=== PATIENT | male | born 1965 | race Caucasian/White ===

== ENCOUNTER 2019-03-06 07:43 | Day surgery (SDC) | payer OTHER ==
[2019-03-04 16:00] VITALS: BMI 32.1
[~2019-03-06 07:43] MED LIST: LACTATED RINGERS 1,000 ML IV SCH; LIDOCAINE 1% 20 ML VIAL (10MG/ML) FOR IV START INTRADERMA PRN
[2019-03-06 08:30] VITALS: RESP 16; TEMP 97.7
[2019-03-06] MEDS ORDERED: PROPOFOL 10 MG/ML 20 ML VIAL IV ONE (08:42)
[2019-03-06] MEDS ORDERED: LIDOCAINE 1% INJ 10MG/ML (20 ML MDV) ONE (08:42)
--- NOTE | 2019-03-06 08:57 | P.PCN ---
Date of Procedure: 03/06/19 Procedure(s) Performed: BRIEF HISTORY: Patient is a 53-year-old pleasant, scheduled for an elective colonoscopy as a part of surveillance of long-standing history of ulcerative colitis diagnosed in 1995. His presently maintained on Lialda 4 tablets daily and remains in clinical remission. PROCEDURE PERFORMED: Colonoscopy with random biopsies. PREOPERATIVE DIAGNOSIS: Long-standing history of ulcerative colitis. IV sedation per Anesthesia. PROCEDURE: After informed consent was obtained, the patient, was brought into the endoscopy unit. IV sedation was administered by Anesthesia under continuous monitoring. Digital rectal examination was normal. Initially the Olympus CF-160 flexible video colonoscope was then inserted in the rectum, gradually advanced into the cecum without any difficulty. Careful examination was performed as the scope was gradually being withdrawn. Ileocecal valve and the appendiceal orifice were visualized and appeared normal. Prep was excellent. Mucosa of the cecum, ascending colon, transverse colon, descending colon, appeared normal. 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 Random biopsies were done from the rectum to cecum and every 10 cm into well. Retroflexion was performed in the rectum and no lesions were seen. The patient tolerated the procedure well. IMPRESSION: Mild erythema in the rectum and sigmoid colon up to 30 cm from the anal verge consistent with mildly active colitis. Rest of the colon appeared normal RECOMMENDATIONS: Findings of this examination were discussed with the patient as well as his family. He was advised to follow with the biopsy results.. He w ill continue with her current medications. If the biopsy does not show any evidence of dysplasia, he can have a repeat colonoscopy in 2 years
[2019-03-06 09:39] VITALS: BP 136/91; PULSE 76
== END 2019-03-06 10:01 | disposition home or self-care (01) ==
LOC: ORWHC2ENDO 07:43
PROVIDERS: ATTEND Internal Medicine Gastroenterology
DX: K51.90 Ulcerative colitis, unspecified, without complications (principal); I10 Essential (primary) hypertension; E78.5 Hyperlipidemia, unspecified; Z79.899 Other long term (current) drug therapy
CPT/HCPCS: 88305; 45380; J2001; J2704

== ENCOUNTER → 2019-12-09 | Outpatient (CLI) | payer OTHER ==
[2019-12-09 15:34] LABS: Basophils # (A) 0.1 k/uL (0-0.2); Basophils % (A) 1 %; Eosinophils # (A) 0.6 k/uL (0-0.7); Eosinophils % (A) 5 %; HCT 47.9 % (39.0-53.0); HGB 15.6 gm/dL (13.0-17.5); Lymphocytes % (A) 17 %; MCH 28.9 pg (25.0-35.0); MCHC 32.5 g/dL (31.0-37.0); MCV 88.8 fL (80.0-100.0); Mean Platelet Volume 6.8; Monocytes # (A) 0.5 k/uL (0-1.0); Monocytes % (A) 4 %; Neutrophils # (A) 8.3 k/uL (1.3-7.7); Neutrophils % (A) 71 %; Platelet Count 285 k/uL (150-450); RBC 5.39 m/uL (4.30-5.90); WBC 11.7 k/uL (3.8-10.6)
[2019-12-09 18:21] LABS: Erythrocyte Sedimentation Rate 15 mm/hr (0-15)
[2019-12-10 00:42] LABS: Hepatitis B Surface Antigen Non-Reactive (Non-Reactive)
== END | disposition home or self-care (01) ==
LOC: LABWHC1 14:59
PROVIDERS: ATTEND Internal Medicine Gastroenterology
DX: K51.90 Ulcerative colitis, unspecified, without complications (principal)
CPT/HCPCS: 36415; 85025; 85652; 86140; 86480; 86704; 87340

== ENCOUNTER → 2020-09-17 | Outpatient (CLI) | payer OTHER ==
--- NOTE | 2020-09-17 12:45 | XR ---
EXAMINATION TYPE: XR tibia fibula RT DATE OF EXAM: 09/17/2020 COMPARISON: NONE HISTORY: Pain TECHNIQUE: Two views are submitted. FINDINGS: The osseous structures are intact. The joint spaces are preserved. IMPRESSION: 1. No acute osseous abnormality.
--- NOTE | 2020-09-17 12:46 | XR ---
EXAMINATION TYPE: XR foot complete RT DATE OF EXAM: 09/17/2020 COMPARISON: NONE HISTORY: Pain TECHNIQUE: Three views are submitted. FINDINGS: The osseous structures are intact. There is no acute fracture or dislocation. Mild hypertrophic ch finn first MTP. Calcaneal spur noted.. IMPRESSION: 1. No acute fracture or dislocation. If symptoms persist, follow-up exam in 7 to 10 days could be ob tained.
== END | disposition home or self-care (01) ==
LOC: RADXRMAIN 12:06
PROVIDERS: ATTEND Internal Medicine
DX: S82.91XA Unspecified fracture of right lower leg, initial encounter for closed fracture (principal)

== ENCOUNTER → 2020-10-01 | Outpatient (CLI) | payer OTHER ==
--- NOTE | 2020-10-01 15:39 | US ---
EXAMINATION TYPE: US venous doppler duplex LE RT DATE OF EXAM: 10/01/2020 1:56 PM COMPARISON: NONE CLINICAL HISTORY: I82.40 acute Embolism thrombosis deep vein lower. Patient dropped a log on his leg about 1-2 months ago. Pain SIDE PERFORMED: Right TECHNIQUE: The lower extremity deep venous system is examined utilizing real time linear array sonog tricia with graded compression, doppler sonography and color-flow sonography. VESSELS IMAGED: External Iliac Vein (EIV) Common Femoral Vein Deep Femoral Vein Greater Saphenous Vein * Femoral Vein Popliteal Vein Small Saphenous Vein * Proximal Calf Veins (* superficial vessels) There is normal flow, compressibility, vascular waveforms. Right Leg: Negative for DVT IMPRESSION: No evident deep venous thrombosis at or central to the right knee, follow-up as indicated
== END | disposition home or self-care (01) ==
LOC: RADUSWWP 13:26
PROVIDERS: ATTEND Internal Medicine
DX: I82.401 Acute embolism and thrombosis of unspecified deep veins of right lower extremity (principal)

== ENCOUNTER → 2021-06-02 | Outpatient (CLI) | payer OTHER ==
[2021-06-02 18:23] LABS: Basophils # (A) 0.04 X 10*3/uL (0.00-0.10); Basophils % (A) 0.6 %; Eosinophils # (A) 0.24 X 10*3/uL (0.04-0.35); Eosinophils % (A) 3.5 %; HCT 47.8 % (39.6-50.0); HGB 15.6 g/dL (13.0-17.0); Lymphocytes % (A) 36.7 %; MCH 29.5 pg (27.0-32.0); MCHC 32.6 g/dL (32.0-37.0); MCV 90.5 fL (80.0-97.0); Monocytes # (A) 0.53 X 10*3/uL (0.20-1.00); Monocytes % (A) 7.8 %; Neutrophils # (A) 3.49 X 10*3/uL (1.80-7.70); Neutrophils % (A) 51.1 %; Platelet Count 211 X 10*3/uL (140-440); RBC 5.28 X 10*6/uL (4.40-5.60); RDW 12.6 % (11.5-14.5); WBC 6.82 X 10*3/uL (4.50-10.00)
[2021-06-02 22:13] LABS: African American GFR (CKD) 77.3 (60.0-200.0); Albumin 4.7 g/dL (3.80-4.90); Albumin/Globulin Ratio 1.96 (1.60-3.17); Anion Gap 8.7 mmol/L (4.00-12.00); BUN/Creat Ratio 12.5 Ratio (12.00-20.00); Carbon Dioxide 25.3 mmol/L (21.6-31.8); Globulin 2.4 g/dL (1.6-3.3); Non-African American GFR(CKD) 66.7 (60.0-200.0); Potassium 4.6 mmol/L (3.5-5.5); Total Bilirubin 0.6 mg/dL (0.3-1.2); Total Protein 7.1 g/dL (6.2-8.2)
== END | disposition home or self-care (01) ==
LOC: LABWHC1 10:54
PROVIDERS: ATTEND Internal Medicine Gastroenterology
DX: K51.90 Ulcerative colitis, unspecified, without complications (principal)
CPT/HCPCS: 36415; 80053; 85025

== ENCOUNTER → 2021-08-17 | Outpatient (CLI) | payer OTHER ==
[2021-08-17 18:20] LABS: Basophils # (A) 0.04 X 10*3/uL (0.00-0.10); Basophils % (A) 0.5 %; Eosinophils # (A) 0.25 X 10*3/uL (0.04-0.35); Eosinophils % (A) 2.8 %; HCT 47.4 % (39.6-50.0); HGB 16.2 g/dL (13.0-17.0); Lymphocytes # (A) 2.46 X 10*3/uL (0.90-5.00); Lymphocytes % (A) 27.9 %; MCH 30.2 pg (27.0-32.0); MCHC 34.2 g/dL (32.0-37.0); MCV 88.4 fL (80.0-97.0); Mean Platelet Volume 9.5 fL (9.5-12.2); Monocytes # (A) 0.67 X 10*3/uL (0.20-1.00); Monocytes % (A) 7.6 %; Neutrophils # (A) 5.39 X 10*3/uL (1.80-7.70); Platelet Count 207 X 10*3/uL (140-440); RBC 5.36 X 10*6/uL (4.40-5.60); RDW 12.3 % (11.5-14.5); WBC 8.83 X 10*3/uL (4.50-10.00)
[2021-08-17 21:33] LABS: African American GFR (CKD) 77.3 (60.0-200.0); Albumin 4.9 g/dL (3.80-4.90); Albumin/Globulin Ratio 1.81 (1.60-3.17); Anion Gap 9.8 mmol/L (4.00-12.00); Calcium 9.8 mg/dL (8.7-10.3); Carbon Dioxide 25.2 mmol/L (21.6-31.8); Globulin 2.7 g/dL (1.6-3.3); Non-African American GFR(CKD) 66.7 (60.0-200.0); Potassium 5.5 mmol/L (3.5-5.5); Total Bilirubin 0.7 mg/dL (0.2-1.2); Total Protein 7.6 g/dL (6.2-8.2)
== END | disposition home or self-care (01) ==
LOC: LABWHC1 11:09
PROVIDERS: ATTEND Internal Medicine Gastroenterology
DX: K51.90 Ulcerative colitis, unspecified, without complications (principal)
CPT/HCPCS: 36415; 80053; 85025

== ENCOUNTER 2021-09-17 11:05 | Day surgery (SDC) | payer OTHER ==
[2021-09-15 11:00] VITALS: BMI 30.7
[~2021-09-17 11:05] MED LIST changes: -LIDOCAINE 1% 20 ML VIAL (10MG/ML) FOR IV START INTRADERMA PRN
[2021-09-17 11:36] VITALS: TEMP 97.2
[2021-09-17] MEDS ORDERED: PROPOFOL 10 MG/ML 20 ML VIAL IV ONE (12:49)
[2021-09-17] MEDS ORDERED: LIDOCAINE 1% INJ 10MG/ML (20 ML MDV) ONE (12:49)
--- NOTE | 2021-09-17 13:07 | P.PCN ---
Date of Procedure: 09/17/21 Procedure(s) Performed: BRIEF HISTORY: Patient is a 56-year-old pleasant white male scheduled for an elective colonoscopy as a part of as a long-standing history of ulcerative colitis diagnosed in 1995. Patient has been having flareup for the last 2 years and has been steroid dependent. He was started on the Humira injection since July 2020. He continues to have 3-4 bowel movements daily. No blood or mucus in the stool. He scheduled for a surveillance colonoscopy today. PROCEDURE PERFORMED: Colonoscopy and biopsy. PREOPERATIVE DIAGNOSIS: Surveillance of long-standing history of ulcerative colitis. IV sedation per Anesthesia. PROCEDURE: After informed consent was obtained, the patient, was brought into the endoscopy unit. IV sedation was administered by Anesthesia under continuous monitoring. Digital rectal examination was normal. Initially the Olympus CF-160 flexible video colonoscope was then inserted in the rectum, gradually advanced into the cecum without any difficulty. Careful examination was performed as the scope was gradually being withdrawn. Ileocecal valve and the appendiceal orifice were visualized and appeared normal. Prep was excellent. Mucosa of the cecum, ascending colon, transverse colon, descending colon, sigmoid colon, and rectum appeared normal. Biopsies were done from cecum to rectum at every 10 cm into well. Retroflexion was performed in the rectum and no lesions were seen. The patient tolerated the procedure well. IMPRESSION: Normal-appearing colon from rectum to cecum no evidence of active colitis or colorectal neoplasia . RECOMMENDATIONS: Findings of this examination were discussed with the patient as well as his family. He was advised to continue with Humira injections every 2 weeks. Await biopsy results. If the biopsy does not show any evidence of dysplasia he can have a repeat surveillance colonoscopy every 2 years..
[2021-09-17 13:38] VITALS: BP 123/70; PULSE 77; RESP 20
== END 2021-09-17 13:36 | disposition home or self-care (01) ==
LOC: ORWHC2ENDO 11:05
PROVIDERS: ATTEND Internal Medicine Gastroenterology
DX: K51.90 Ulcerative colitis, unspecified, without complications (principal); K62.89 Other specified diseases of anus and rectum; I10 Essential (primary) hypertension; E78.5 Hyperlipidemia, unspecified; Z79.899 Other long term (current) drug therapy; K21.9 Gastro-esophageal reflux disease without esophagitis; Z79.52 Long term (current) use of systemic steroids
CPT/HCPCS: 88305; 45380; J2001; J2704

== ENCOUNTER → 2022-01-19 | Outpatient (CLI) | payer OTHER ==
--- NOTE | 2022-01-19 14:05 | XR ---
EXAMINATION TYPE: XR thoracic spine complete DATE OF EXAM: 01/19/2022 COMPARISON: NONE HISTORY: Pain TECHNIQUE: 3 views submitted FINDINGS: Multilevel hypertrophic and degenerative changes. At T12 there is a superior endplate compression fr acture of indeterminate age. Most likely chronic. Pedicles intact. Curvature of the spine noted. IMPRESSION: 1. Multilevel moderate to severe degenerative disc disease and hypertrophic spurring. Age-indetermina te compression fracture superior endplate T12. Most likely chronic correlate clinically.
--- NOTE | 2022-01-19 14:12 | XR ---
EXAM TYPE: LUMBAR SPINE X RAY SERIES COMPARISON: 08/27/2000 HISTORY: Pain TECHNIQUE: 4 views are submitted. FINDINGS: Hypertrophic spurring and degenerative disc disease is seen at all levels and most marked thoracolumb ar junction. There is an age-indeterminate superior endplate compression fractures L1. Facet arthropa thy particularly noted at levels L3-S1. IMPRESSION: 1. Age-indeterminate probable chronic superior endplate compression fracture L1 correlate with MRI. 2. There is multilevel degenerative disc disease and facet arthropathy. Foraminal encroachment suspec finesse L5-S1..
== END | disposition home or self-care (01) ==
LOC: RADXRMAIN 13:39
PROVIDERS: ATTEND Internal Medicine
DX: M51.34 Other intervertebral disc degeneration, thoracic region (principal); M25.78 Osteophyte, vertebrae; M51.37 Other intervertebral disc degeneration, lumbosacral region; M47.817 Spondylosis without myelopathy or radiculopathy, lumbosacral region
CPT/HCPCS: 72072; 72100

== ENCOUNTER 2022-05-26 10:36 | Emergency (ER) | payer OTHER ==
[2022-05-26 10:42] VITALS: RESP 18
[2022-05-26 12:21] LABS: Basophils # (A) 0.1 k/uL (0-0.2); Basophils % (A) 1 %; Eosinophils # (A) 0.2 k/uL (0-0.7); Eosinophils % (A) 2 %; HCT 47.2 % (39.0-53.0); Lymphocytes # (A) 2.1 k/uL (1.0-4.8); Lymphocytes % (A) 27 %; MCHC 33.9 g/dL (31.0-37.0); MCV 91.5 fL (80.0-100.0); Monocytes # (A) 0.4 k/uL (0-1.0); Monocytes % (A) 4 %; Neutrophils # (A) 5.2 k/uL (1.3-7.7); Neutrophils % (A) 64 %; Platelet Count 203 k/uL (150-450); RBC 5.16 m/uL (4.30-5.90); RDW 12.5 % (11.5-15.5)
[2022-05-26 12:28] LABS: Albumin 4.8 g/dL (3.5-5.0); Calcium 9.6 mg/dL (8.4-10.2); Magnesium 1.9 mg/dL (1.6-2.3); Potassium 4.8 mmol/L (3.5-5.1); Total Bilirubin 0.5 mg/dL (0.2-1.3); Total Protein 7.8 g/dL (6.3-8.2)
[2022-05-26 12:37] LABS: Partial Thromboplastin Time 25.2 sec (22.0-30.0); Prothrombin Time 10.6 sec (9.0-12.0)
--- NOTE | 2022-05-26 14:12 | XR ---
EXAMINATION TYPE: XR chest 2V DATE OF EXAM: 05/26/2022 COMPARISON: NONE TECHNIQUE: PA and lateral views submitted. HISTORY: Syncope FINDINGS: Heart size normal. Hypertrophic and degenerative changes spine. Chronic appearing superior endplate f orming thoracolumbar. Very minimal blunting of the right costophrenic angle. There is subsegmental ch anges in the left perihilar region. Biapical pleural thickening. IMPRESSION: 1. Left perihilar atelectasis or early infiltrate correlate clinically.
--- NOTE | 2022-05-26 14:17 | ED ---
General Adult HPI - General Chief complaint: Syncope Stated complaint: syncope Time Seen by Provider: 05/26/22 11:18 Source: patient, RN notes reviewed Mode of arrival: ambulatory Limitations: no limitations - History of Present Illness Initial comments: 57-year-old male with a history of ulcerative colitis and anxiety also hypertension who apparently received bad news yesterday also financial issues when he states he started getting anxious and hyperventilated he ultimately passed out for he believes a couple minutes. He had no injury. He denies any fevers chills nausea vomiting sweats no focal weakness. He did contact his doctor referred him here for evaluation. He at this time feels well he states this is happened before. No other complaints or modifying factors at this time - Related Data Home Medications Medication Instructions Recorded Confirmed Lovastatin [Mevacor] 40 mg PO HS 11/16/16 09/17/21 Mesalamine [Lialda] 4.8 gm PO DAILY 11/16/16 09/17/21 Mirtazapine [Remeron] 45 mg PO HS 11/16/16 09/17/21 Omeprazole 20 mg PO DAILY 11/16/16 09/17/21 Adalimumab [Humira Pen 40 mg SQ Q14D 09/15/21 09/17/21 Crohn's-Uc-Hs] busPIRone HCL [Buspar] 7.5 mg PO BID 09/15/21 09/17/21 lisinopriL [Zestril] 5 mg PO DAILY 09/15/21 09/17/21 Allergies Allergy/AdvReac Type Severity Reaction Status Date / Time No Known Allergies Allergy Verified 05/26/22 10:42 Review of Systems ROS Statement: Those systems with pertinent positive or pertinent negative responses have been documented in the HPI. ROS Other: All systems not noted in ROS Statement are negative. Past Medical History Past Medical History: Hyperlipidemia, Hypertension Additional Past Medical History / Comment(s): ulcerative Colitis History of Any Multi-Drug Resistant Organisms: None Reported Past Surgical History: No Surgical Hx Reported Additional Past Surgical History / Comment(s): Colonoscopies Past Anesthesia/Blood Transfusion Reactions: No Reported Reaction Past Psychological History: Anxiety Smoking Status: Never smoker Past Alcohol Use History: Rare - Past Family History Mother Family Medical History: No Reported History General Exam - General Exam Comments Initial Comments: This is a well-developed well-nourished awake alert oriented times 4 male Limitations: no limitations General appearance: alert, in no apparent distress Head exam: Present: atraumatic, normocephalic, normal inspection Eye exam: Present: normal appearance, PERRL, EOMI. Absent: scleral icterus, conjunctival injection, periorbital swelling ENT exam: Present: normal exam, mucous membranes moist Neck exam: Present: normal inspection, full ROM, other (No stridor JVD or bruits). Absent: tenderness, meningismus, lymphadenopathy Respiratory exam: Present: normal lung sounds bilaterally. Absent: respiratory distress, wheezes, rales, rhonchi, stridor Cardiovascular Exam: Present: regular rate, normal rhythm, normal heart sounds. Absent: systolic murmur, diastolic murmur, rubs, gallop, clicks GI/Abdominal exam: Present: soft, normal bowel sounds. Absent: distended, tenderness, guarding, rebound, rigid, bruit, pulsatile mass Extremities exam: Present: normal inspection, full ROM, normal capillary refill. Absent: tenderness, pedal edema, joint swelling, calf tenderness Back exam: Present: normal inspection Neurological exam: Present: alert, oriented X3, CN II-XII intact Psychiatric exam: Present: normal affect, normal mood Skin exam: Present: warm, dry, intact, normal color. Absent: rash Course Vital Signs 05/26/22 10:38 Temperature 97.9 F Pulse Rate 88 Respiratory 18 Rate Blood Pressure 159/94 O2 Sat by Pulse 97 Oximetry EKG Findings - EKG Results: EKG: interpreted by ERMD, sinus rhythm (Sinus rhythm rate of 84 NJ interval 134 QRS duration 99 QT since QTC 347/388 Q waves seen in leads 2 and aVF nonspecific) Medical Decision Making - Medical Decision Making Patient presented with complaints of a syncopal episode yesterday after getting bad news about some financial situation he has a history of anxiety and thinks he hyperventilated and passed out for a couple minutes. He presents today awake alert oriented 4 no distress no clinical findings. Patient be discharged to follow-up with his doctor we did discuss the possible hypodensity in the right thyroid lobe he will get this addressed outpatient. The presentation consistent with vasovagal episode - Lab Data Result diagrams: 05/26/22 11:37 05/26/22 11:37 Lab Results 05/26/22 05/26/22 05/26/22 Range/Units 11:37 11:37 11:37 WBC 8.0 (3.8-10.6) k/uL RBC 5.16 (4.30-5.90) m/uL Hgb 16.0 (13.0-17.5) gm/dL Hct 47.2 (39.0-53.0) % MCV 91.5 (80.0-100.0) fL MCH 31.0 (25.0-35.0) pg MCHC 33.9 (31.0-37.0) g/dL RDW 12.5 (11.5-15.5) % Plt Count 203 (150-450) k/uL MPV 7.0 Neutrophils % 64 % Lymphocytes % 27 % Monocytes % 4 % Eosinophils % 2 % Basophils % 1 % Neutrophils # 5.2 (1.3-7.7) k/uL Lymphocytes # 2.1 (1.0-4.8) k/uL Monocytes # 0.4 (0-1.0) k/uL Eosinophils # 0.2 (0-0.7) k/uL Basophils # 0.1 (0-0.2) k/uL PT 10.6 (9.0-12.0) sec INR 1.0 (<1.2) APTT 25.2 (22.0-30.0) sec D-Dimer 0.73 H (<0.60) mg/L FEU Sodium 140 (137-145) mmol/L Potassium 4.8 (3.5-5.1) mmol/L Chloride 107 (98-107) mmol/L Carbon Dioxide 26 (22-30) mmol/L Anion Gap 7 mmol/L BUN 12 (9-20) mg/dL Creatinine 1.21 (0.66-1.25) mg/dL Est GFR (CKD-EPI)AfAm 76 (>60 ml/min/1.73 sqM) Est GFR (CKD-EPI)NonAf 66 (>60 ml/min/1.73 sqM) Glucose 105 H (74-99) mg/dL Calcium 9.6 (8.4-10.2) mg/dL Magnesium 1.9 (1.6-2.3) mg/dL Total Bilirubin 0.5 (0.2-1.3) mg/dL AST 30 (17-59) U/L ALT 33 (4-49) U/L Alkaline Phosphatase 67 (38-126) U/L Troponin I (0.000-0.034) ng/mL Total Protein 7.8 (6.3-8.2) g/dL Albumin 4.8 (3.5-5.0) g/dL 05/26/22 Range/Units 11:37 WBC (3.8-10.6) k/uL RBC (4.30-5.90) m/uL Hgb (13.0-17.5) gm/dL Hct (39.0-53.0) % MCV (80.0-100.0) fL MCH (25.0-35.0) pg MCHC (31.0-37.0) g/dL RDW (11.5-15.5) % Plt Count (150-450) k/uL MPV Neutrophils % % Lymphocytes % % Monocytes % % Eosinophils % % Basophils % % Neutrophils # (1.3-7.7) k/uL Lymphocytes # (1.0-4.8) k/uL Monocytes # (0-1.0) k/uL Eosinophils # (0-0.7) k/uL Basophils # (0-0.2) k/uL PT (9.0-12.0) sec INR (<1.2) APTT (22.0-30.0) sec D-Dimer (<0.60) mg/L FEU Sodium (137-145) mmol/L Potassium (3.5-5.1) mmol/L Chloride (98-107) mmol/L Carbon Dioxide (22-30) mmol/L Anion Gap mmol/L BUN (9-20) mg/dL Creatinine (0.66-1.25) mg/dL Est GFR (CKD-EPI)AfAm (>60 ml/min/1.73 sqM) Est GFR (CKD-EPI)NonAf (>60 ml/min/1.73 sqM) Glucose (74-99) mg/dL Calcium (8.4-10.2) mg/dL Magnesium (1.6-2.3) mg/dL Total Bilirubin (0.2-1.3) mg/dL AST (17-59) U/L ALT (4-49) U/L Alkaline Phosphatase (38-126) U/L Troponin I <0.012 (0.000-0.034) ng/mL Total Protein (6.3-8.2) g/dL Albumin (3.5-5.0) g/dL - Radiology Data Radiology results: report reviewed (Imaging reviewed no acute findings seen. No evidence of PE. The findings please see the complete report I did discuss the thyroid findings with the patient.), image reviewed Disposition Clinical Impression: Vasovagal syncope Disposition: HOME SELF-CARE Condition: Good Instructions (If sedation given, give patient instructions): Syncope (DC) Is patient prescribed a controlled substance at d/c from ED?: No Referrals: Deana Arechiga MD [Primary Care Provider] - 1-2 days Decision Date: 05/26/22 Decision Time: 15:23
--- NOTE | 2022-05-26 14:34 | CT ---
EXAMINATION TYPE: CT angio chest DATE OF EXAM: 05/26/2022 COMPARISON: No previous CT scan is available for comparison HISTORY: Syncope CT DLP: 599.4 mGy.cm. Automated Exposure Control for Dose Reduction was Utilized. TECHNIQUE AND CONTRAST: CTA scan of the thorax is performed with IV Contrast, patient injected with 100 mL of Isovue 370, pul monary embolism protocol. MIP Images are created on an independent workstation and reviewed. FINDINGS: Markedly artifactual images mainly in the right lung and in the lung bases. No definite filling defec t within the pulmonary trunk, main pulmonary arteries, lobar or some proximal segmental branches to s uggest pulmonary embolism. Other segmental and subsegmental branches are suboptimally assessed. No gr oss cardiomegaly. Scattered subsegmental bilateral pulmonary atelectasis. Patent trachea and main bronchi. No pleural o r pericardial effusion. No pathologically enlarged lymph nodes in the chest. Questionable right thyro id lobe hypodensity, for correlation with thyroid ultrasound results. Suspected right renal cyst. Deg enerative changes of the thoracic spine. IMPRESSION: Artifactual images. No major or central pulmonary embolism. Segmental or subsegmental pulmonary embol ism can't be excluded by this CT scan. Other findings as described above.
[2022-05-26 15:49] VITALS: BP 145/88; PULSE 77; TEMP 98
== END 2022-05-26 15:49 | disposition home or self-care (01) ==
LOC: EC 10:36
DX: R55 Syncope and collapse (principal); I10 Essential (primary) hypertension; E78.5 Hyperlipidemia, unspecified; F41.9 Anxiety disorder, unspecified; Z79.899 Other long term (current) drug therapy
CPT/HCPCS: 93005; 85379; 80053; 83735; 84484; 85025; 85610; 85730; 71046; 71275; 99284; Q9967

== ENCOUNTER → 2022-05-31 | Outpatient (CLI) | payer OTHER ==
--- NOTE | 2022-05-31 19:02 | CT ---
EXAMINATION TYPE: CT brain wo con DATE OF EXAM: 05/31/2022 HISTORY: Headache after recent anxiety attack. CT DLP: 1090.4 mGycm. Automated Exposure Control for Dose Reduction was Utilized. TECHNIQUE: CT scan of the head is performed without contrast. COMPARISON: CT brain August 27, 2010.. FINDINGS: There is no acute intracranial hemorrhage or midline shift identified. Ventricles and sul ci within normal limits in size for patient's age. Roberts-white matter differentiation maintained. The globes are intact and the visualized sinuses are clear. Patchy soft tissue density consistent with cerumen in the bilateral external auditory canals is present on current study. IMPRESSION: No acute intracranial hemorrhage or midline shift
== END | disposition home or self-care (01) ==
LOC: RADCTMAIN 16:44
PROVIDERS: ATTEND Internal Medicine
DX: R51.9 Headache, unspecified (principal)
CPT/HCPCS: 70450

== ENCOUNTER → 2022-06-16 | Outpatient (CLI) | payer OTHER ==
--- NOTE | 2022-06-16 15:25 | US ---
EXAMINATION TYPE: US thyroid st tissue head/neck DATE OF EXAM: 06/16/2022 COMPARISON: None CLINICAL HISTORY: 57-year-old male E04.1 THYROID NODULE. Other imaging modality showed right thyroid nodule. Technique: Multiple sonographic images of the thyroid gland are obtained. FINDINGS: GLAND SIZE: Right Lobe: 4.1 x 1.6 x 1.7 cm Overall Parenchyma: homogenous Left Lobe: 4.3 x 1.6 x 1.5 cm Overall Parenchyma: homogeneous Isthmus Thickness: 0.8 cm NODULES RIGHT: # of nodules measured on right: 1 1. 1.5 X 1.4 x 1.1 cm, lower mid, solid or almost completely solid, heterogeneous hypoechoic nodule , which is wider than tall, with ill-defined margins, without echogenic foci. Prior size: no prior ultrasound LEFT: # of nodules measured on left: 0 ISTHMUS: # of nodules measured in the isthmus: 0 Bilateral neck scanned, no evidence of lymphadenopathy. IMPRESSION: A solitary 1.5 cm solid TR4 nodule within the right mid to lower pole. FNA can be performed.
== END | disposition home or self-care (01) ==
LOC: RADUSWWP 12:45
PROVIDERS: ATTEND Internal Medicine
DX: E04.1 Nontoxic single thyroid nodule (principal)
CPT/HCPCS: 76536

== ENCOUNTER → 2022-07-07 | Outpatient (CLI) | payer OTHER | END | disposition home or self-care (01) | LOC: LABWHC1 10:30 | PROVIDERS: ATTEND Internal Medicine | DX: U07.1 COVID-19 (principal) ==

== ENCOUNTER → 2022-07-13 | Outpatient (CLI) | payer OTHER ==
--- NOTE | 2022-07-13 10:37 | XR ---
EXAMINATION TYPE: XR chest 2V DATE OF EXAM: 07/13/2022 COMPARISON: 05/26/2022 TECHNIQUE: PA and lateral views submitted. HISTORY: Cough FINDINGS: Elevated left hemidiaphragm with subsegmental changes involving the left lung. Biapical pleural thick ening. Hypertrophic and degenerative changes in the spine. Heart size normal. No overt failure. IMPRESSION: 1. Stable subsegmental consolidation in the left perihilar and lower lobe most likely in the basis of chronic atelectasis or scar.
== END | disposition home or self-care (01) ==
LOC: RADXRMAIN 09:38
PROVIDERS: ATTEND Internal Medicine
DX: U07.1 COVID-19 (principal)
CPT/HCPCS: 71046

== ENCOUNTER 2022-07-26 12:08 | Day surgery (SDC) | payer OTHER ==
[2022-07-26 12:41] VITALS: TEMP 98.7
[2022-07-26 13:28] VITALS: PULSE 78; RESP 16
[2022-07-26 13:29] VITALS: BP 137/91
--- NOTE | 2022-07-27 15:50 | US ---
ULTRASOUND GUIDED FNA THYROID BIOPSY: CLINICAL HISTORY: Right thyroid nodule FINDINGS: The procedure was explained to the patient. The risks, complications, benefits and alternatives were discussed and any questions were answered. Informed consent was obtained. Patient was placed supin e on the ultrasound table and prepped and draped in the usual sterile fashion. Utilizing a 25 gauge needle, five passes were made into the requested right thyroid nodule. Patient was stable throughout the procedure. Pathology is pending. All elements of maximal barrier technique were utilized. IMPRESSION: 1. Successful ultrasound guided FNA thyroid biopsy.
== END 2022-07-26 13:18 | disposition home or self-care (01) ==
LOC: RADPROMAIN 12:08
PROVIDERS: ATTEND Internal Medicine
DX: E04.1 Nontoxic single thyroid nodule (principal); Z79.899 Other long term (current) drug therapy; Z87.891 Personal history of nicotine dependence
CPT/HCPCS: 10005; 88173; 88305

== ENCOUNTER → 2022-12-20 | Outpatient (CLI) | payer OTHER ==
[2022-12-20 14:46] LABS: Basophils # (A) 0.04 X 10*3/uL (0.00-0.10); Basophils % (A) 0.5 %; Eosinophils # (A) 0.18 X 10*3/uL (0.04-0.35); Eosinophils % (A) 2.2 %; HCT 49.5 % (39.6-50.0); HGB 16.7 g/dL (13.0-17.0); Immature Grans, Automated 0.2 %; Lymphocytes # (A) 2.58 X 10*3/uL (0.90-5.00); Lymphocytes % (A) 31.1 %; MCHC 33.7 g/dL (32.0-37.0); MCV 88.9 fL (80.0-97.0); Mean Platelet Volume 9.6 fL (9.5-12.2); Monocytes # (A) 0.55 X 10*3/uL (0.20-1.00); Monocytes % (A) 6.6 %; NRBC Per 100 WBC 0 /100 WBCS (0.0-0.0); Neutrophils # (A) 4.93 X 10*3/uL (1.80-7.70); Neutrophils % (A) 59.4 %; Platelet Count 226 X 10*3/uL (140-440); RBC 5.57 X 10*6/uL (4.40-5.60); RDW 12.3 % (11.5-14.5)
[2022-12-20 17:04] LABS: ALT 34 U/L (10-49); AST 26 U/L (14-35); Albumin 4.8 g/dL (3.8-4.9); Albumin/Globulin Ratio 1.77 (1.60-3.17); Alkaline Phosphatase 64 U/L (41-126); Bilirubin, Conjugated <0.20 mg/dL (0.20-0.40); Chol/HDL Ratio 3.43 Ratio; Globulin 2.7 g/dL (1.6-3.3); LDL Cholesterol,Calculated 103.9 mg/dL (0.0-131.0); Lipase 39 U/L (14-60); Total Protein 7.5 g/dL (6.2-8.2)
== END | disposition home or self-care (01) ==
LOC: LABWHC1 10:13
DX: F41.0 Panic disorder [episodic paroxysmal anxiety] (principal); F41.1 Generalized anxiety disorder
CPT/HCPCS: 36415; 80061; 80076; 83036; 83690; 84436; 84439; 84443; 84479; 84481; 85025

== ENCOUNTER → 2022-12-28 | Outpatient (CLI) | payer OTHER | END | disposition home or self-care (01) | LOC: LABT 13:24 | PROVIDERS: ATTEND Nurse Practitioner Psychiatric/Mental Health | DX: F41.0 Panic disorder [episodic paroxysmal anxiety] (principal); F41.1 Generalized anxiety disorder | CPT/HCPCS: 83498; 84436; 84443 ==

== ENCOUNTER 2023-03-16 10:51 | Observation (INO) | payer OTHER ==
[2023-03-16] MEDS ORDERED: ORPHENADRINE 30 MG/ML 2 ML VIAL IM STA (11:08)
--- NOTE | 2023-03-16 11:13 | ED ---
Extremity Problem HPI - General Chief complaint: Extremity Problem,Nontraumatic Stated complaint: Pain in left calf sent by Time Seen by Provider: 03/16/23 11:02 Source: patient, RN notes reviewed, old records reviewed Mode of arrival: ambulatory Limitations: no limitations - History of Present Illness Initial comments: This is a nontoxic-appearing 57-year-old male who presents to the emergency room ambulatory with complaints of left calf pain for the past 5 days. Patient states that it does improve when he is up walking around. Denies any injury. States has been riding his bike but no other abnormal exercising. Did call his primary care doctor who recommended he come to the emergency room to rule out DVT. No fevers. No swelling. No other joint pains. Does have a history of hypertension, anxiety and ulcerative colitis. MD Complaint: extremity pain -: days(s) (1) Location: left, lower extremity (calf) History of Same: No Severity scale (1-10): 5 Quality: aching Consistency: constant Improves with: movement (ambulation) Worsens with: palpation Associated Symptoms: denies other symptoms - Related Data Home Medications Medication Instructions Recorded Confirmed Lovastatin [Mevacor] 40 mg PO DAILY 11/16/16 03/16/23 Mesalamine [Lialda] 4.8 gm PO DAILY 11/16/16 03/16/23 Mirtazapine [Remeron] 45 mg PO HS@199911/16/16 03/16/23 Omeprazole 20 mg PO DAILY 11/16/16 03/16/23 Adalimumab [Humira Pen 40 mg SQ Q14D 09/15/21 03/16/23 Crohn's-Uc-Hs] lisinopriL [Zestril] 5 mg PO DAILY 09/15/21 03/16/23 LORazepam [Ativan] 0.5 mg PO HS@219903/16/23 03/16/23 OLANZapine [ZyPREXA] 10 mg PO HS@219903/16/23 03/16/23 busPIRone HCL 15 mg PO TID@0600,1400,199903/16/23 03/16/23 Allergies Allergy/AdvReac Type Severity Reaction Status Date / Time No Known Allergies Allergy Verified 03/16/23 13:53 Review of Systems ROS Statement: Those systems with pertinent positive or pertinent negative responses have been documented in the HPI. ROS Other: All systems not noted in ROS Statement are negative. Past Medical History Past Medical History: Hyperlipidemia, Hypertension Additional Past Medical History / Comment(s): ulcerative Colitis History of Any Multi-Drug Resistant Organisms: None Reported Past Surgical History: No Surgical Hx Reported Additional Past Surgical History / Comment(s): Colonoscopies Past Anesthesia/Blood Transfusion Reactions: No Reported Reaction Past Psychological History: Anxiety Smoking Status: Never smoker Past Alcohol Use History: None Reported Past Drug Use History: None Reported - Past Family History Mother Family Medical History: No Reported History General Exam Limitations: no limitations General appearance: alert, in no apparent distress Head exam: Present: atraumatic Eye exam: Present: normal appearance. Absent: scleral icterus, conjunctival injection, periorbital swelling, periorbital tenderness Neck exam: Absent: meningismus Respiratory exam: Present: normal lung sounds bilaterally. Absent: respiratory distress, accessory muscle use Cardiovascular Exam: Present: tachycardia Extremities exam: Present: normal inspection, full ROM, tenderness (left calf), normal capillary refill, calf tenderness (left). Absent: pedal edema Left Knee exam: Present: full ROM. Absent: tenderness, swelling Lower Leg exam: Present: full ROM, tenderness. Absent: swelling, abrasion, laceration, ecchymosis, deformity, crepitus, dislocation, erythema, palpable cord, Homans' sign Ankle exam: Present: full ROM. Absent: tenderness, crepitus, dislocation, erythema, anterior draw sign Foot/Toe exam: Present: normal inspection, full ROM. Absent: tenderness, ec chymosis Neurovascular tendon exam: Present: no vascular compromise. Absent: abnormal cap refill, sensory deficit, tendon deficit, extremity cold to touch, pallor, decreased fine/light touch, foot drop Neurological exam: Present: alert, oriented X3 Psychiatric exam: Present: normal affect, normal mood Skin exam: Present: warm, dry, normal color. Absent: cyanosis, diaphoretic, petechiae, pallor Course Vital Signs 03/16/23 03/16/23 03/16/23 10:53 11:09 14:09 Temperature 98.4 F 98.0 F Pulse Rate 112 H 115 H 105 H Respiratory 20 18 18 Rate Blood Pressure 155/108 136/98 153/100 O2 Sat by Pulse 98 97 97 Oximetry - Reevaluation(s) Reevaluation #1: I did discuss the results of ultrasound showing DVT of left leg. I explained to the patient and family that due to his tachycardia I recommend labs and CT angiogram to rule out PE. Patient states that last year he had tachycardia and his doctor ordered a CT at that time that was negative. He believes this is just his anxiety angain causing tachycardia and is hesitant to get another CT. After much discussion with patient and family he is agreeable with a dose of Ativan. 03/16/23 12:57 Time: 12:30 Medical Decision Making - Medical Decision Making Ultrasound shows DVT in the left popliteal vein extending to the proximal calf veins. Patient denies any chest pain or difficulty in breathing. However due to patient's persistent tachycardia and evidence of DVT, CT chest was performed. CT angiogram of the chest shows motion limited exam with scattered pulmonary emboli, visualized no evidence of right heart strain. Patient denies any chest pain or difficulty breathing. EKG shows ventricular rate of 104, HI interval 0.166, QRS 0.100, QTC 0.385, sin us tachycardia. No change compared to old 05/26/2022 Patient is agreeable to admission. Heparin drip be started. Case discussed with Dr. Bae Was pt. sent in by a medical professional or institution (, PA, LOGISTICS ANALYST, urgent care, hospital, or custodial...) When possible be specific @ -Primary care doctor Did you speak to anyone other than the patient for history (EMS, parent, family, police, friend...)? What history was obtained from this source @ -No Did you review nursing and triage notes (agree or disagree)? Why? @ -I reviewed and agree with nursing and triage notes Were old charts reviewed (outside hosp., previous admission, EMS record, old EKG, old radiological studies, urgent care reports/EKG's, custodial records)? Report findings @ -No old charts were reviewed Differential Diagnosis (chest pain, altered mental status, abdominal pain women, abdominal pain men, vaginal bleeding, weakness, fever, dyspnea, syncope, headache, dizziness, GI bleed, back pain, seizure, CVA, palpatations, mental health, musculoskeletal)? @ -DVT, musculoskeletal strain, contusion, neuropathy, cellulitis, pulmonary embolism, coronary syndrome, arrhythmia, tamponade, asthma, COPD, pulmonary embolism, pneumonia, pneumothorax, pulmonary effusion, anemia, this is not meant to be an all-inclusive list. EKG interpreted by me (3pts min.). @ -As above X-rays interpreted by me (1pt min.). @ -None done CT interpreted by me (1pt min.). @ -no U/S interpreted by me (1pt. min.). @ -None done What testing was considered but not performed or refused? (CT, X-rays, U/S, labs)? Why? @ -None What meds were considered but not given or refused? Why? @ -None Did you discuss the management of the patient with other professionals (professionals i.e. Dr., PA, LOGISTICS ANALYST, lab, RT, psych nurse, social work program coordinator, corporate compliance director, teacher, homicide squad commanding officer, sample case porter)? Give summary @ -No Was smoking cessation discussed for >3mins.? @ -No Was critical care preformed (if so, how long)? @ -No Were there social determinants of health that impacted care today? How? (Homelessness, low income, unemployed, alcoholism, drug addiction, transportation, low edu. Level, literacy, decrease access to med. care, snf, rehab)? @ -No Was there de-escalation of care discussed even if they declined (Discuss DNR or withdrawal of care, Hospice)? DNR status @ -No What co-morbidities impacted this encounter? (DM, HTN, Smoking, COPD, CAD, Cancer, CVA, ARF, Chemo, Hep., AIDS, mental health diagnosis, sleep apnea, morbid obesity)? @ -None Was patient admitted / discharged? Hospital course, mention meds given and route, prescriptions, significant lab abnormalities, going to OR and other pertinent info. @ -Hypertension, anxiety, ulcerative colitis Undiagnosed new problem with uncertain prognosis? @ -No Drug Therapy requiring intensive monitoring for toxicity (Heparin, Nitro, Insulin, Cardizem)? @ -Heparin Were any procedures done? @ -No Diagnosis/symptom? @ -Bilateral pulmonary embolism, left DVT Acute, or Chronic, or Acute on Chronic? @ -Acute Uncomplicated (without systemic symptoms) or Complicated (systemic symptoms)? @ -Uncomplicated Side effects of treatment? @ -No Exacerbation, Progression, or Severe Exacerbation? @ -No Poses a threat to life or bodily function? How? (Chest pain, [place], [place], pneumonia, PE, COPD, DKA, ARF, appy, cholecystitis, CVA, Diverticulitis, Homicidal, Suicidal, threat to staff... and all critical care pts) @ -Yes DVT and pulmonary embolism could result in - Lab Data Result diagrams: 03/16/23 12:30 03/16/23 13:22 Lab Results 03/16/23 03/16/23 Range/Units 12:30 13:22 WBC 11.1 H (3.8-10.6) k/uL RBC 5.19 (4.30-5.90) m/uL Hgb 16.4 (13.0-17.5) gm/dL Hct 45.4 (39.0-53.0) % MCV 87.4 (80.0-100.0) fL MCH 31.6 (25.0-35.0) pg MCHC 36.1 (31.0-37.0) g/dL RDW 12.8 (11.5-15.5) % Plt Count 166 (150-450) k/uL MPV 7.0 Neutrophils % 75 % Lymphocytes % 17 % Monocytes % 5 % Eosinophils % 2 % Basophils % 0 % Neutrophils # 8.3 H (1.3-7.7) k/uL Lymphocytes # 1.9 (1.0-4.8) k/uL Monocytes # 0.5 (0-1.0) k/uL Eosinophils # 0.2 (0-0.7) k/uL Basophils # 0.0 (0-0.2) k/uL Hyperchromasia Slight Sodium 138 (137-145) mmol/L Potassium 4.9 (3.5-5.1) mmol/L Chloride 106 (98-107) mmol/L Carbon Dioxide 21 L (22-30) mmol/L Anion Gap 11 mmol/L BUN 16 (9-20) mg/dL Creatinine 0.99 (0.66-1.25) mg/dL Est GFR (CKD-EPI)AfAm >90 (>60 ml/min/1.73 sqM) Est GFR (CKD-EPI)NonAf 84 (>60 ml/min/1.73 sqM) Glucose 101 H (74-99) mg/dL Calcium 9.0 (8.4-10.2) mg/dL Total Bilirubin 0.8 (0.2-1.3) mg/dL AST 33 (17-59) U/L ALT 27 (4-49) U/L Alkaline Phosphatase 82 (38-126) U/L Total Protein 7.5 (6.3-8.2) g/dL Albumin 4.3 (3.5-5.0) g/dL Disposition Clinical Impression: Deep vein thrombosis (DVT) of lower extremity, Pulmonary embolism Disposition: ADMITTED IP TO THIS [facility] Decision Date: 03/16/23 Decision Time: 13:46
--- NOTE | 2023-03-16 11:52 | US ---
EXAMINATION TYPE: US venous doppler duplex LE LT DATE OF EXAM: 03/16/2023 11:08 AM COMPARISON: NONE CLINICAL INDICATION: Male, 57 years old with history of pain; Left calf pain SIDE PERFORMED: Left TECHNIQUE: The lower extremity deep venous system is examined utilizing real time linear array sonog tricia with graded compression, doppler sonography and color-flow sonography. VESSELS IMAGED: Common Femoral Vein Deep Femoral Vein Greater Saphenous Vein * Femoral Vein Popliteal Vein Small Saphenous Vein * Proximal Calf Veins (* superficial vessels) Grayscale, color doppler, spectral doppler imaging performed of the deep veins of the left lower extr emity. There is normal flow, compressibility, vascular waveforms involving the left common femoral a nd femoral veins and greater saphenous vein. There is noncompressibility with lack of color flow invo lving the popliteal vein through the proximal calf veins. Left Leg: Positive for DVT popliteal vein through proximal calf veins IMPRESSION: Deep venous thrombosis of the left popliteal vein extending through the proximal calf veins. Findings called to ER at 11:50 AM on 03/16/2023.
[2023-03-16] MEDS ORDERED: LORazepam 2 MG/ML INJ IV STA (12:22)
[2023-03-16 12:57] LABS: Basophils % (A) 0 %; Eosinophils # (A) 0.2 k/uL (0-0.7); Eosinophils % (A) 2 %; HCT 45.4 % (39.0-53.0); HGB 16.4 gm/dL (13.0-17.5); Hyperchromasia Slight; Lymphocytes # (A) 1.9 k/uL (1.0-4.8); Lymphocytes % (A) 17 %; MCH 31.6 pg (25.0-35.0); MCHC 36.1 g/dL (31.0-37.0); MCV 87.4 fL (80.0-100.0); Monocytes # (A) 0.5 k/uL (0-1.0); Monocytes % (A) 5 %; Neutrophils # (A) 8.3 k/uL (1.3-7.7); Neutrophils % (A) 75 %; Platelet Count 166 k/uL (150-450); RBC 5.19 m/uL (4.30-5.90); RDW 12.8 % (11.5-15.5); WBC 11.1 k/uL (3.8-10.6)
--- NOTE | 2023-03-16 13:26 | CT ---
EXAMINATION TYPE: CT angio chest CT DLP: 563.9 mGycm, Automated exposure control for dose reduction was used. DATE OF EXAM: 03/16/2023 1:16 PM COMPARISON: Chest radiograph from 07/13/2022, CT Angio 05/26/2022 CLINICAL INDICATION:Male, 57 years old with history of dvt tachycardia; Blood clot behind left knee TECHNIQUE/CONTRAST: CTA scan of the thorax is performed with IV Contrast, patient injected with 100, wasted 21 ml mL of I sovue 370, pulmonary embolism protocol. MIP images are created and reviewed these are created on a [employer] workstation.. FINDINGS: Pulmonary Artery: There are filling defects seen scattered throughout the lungs most pronounced in th e left upper lung series 411 image 35. Areas in the lung bases are suboptimally evaluated given respi ratory motion is felt to be one in the right lower lung. Pulmonary trunk is within normal limits. No straightening of the interventricular septum or reflux of contrast appreciated. Lungs/Pleura: No evidence of focal consolidation, pleural effusion or pneumothorax. Airway: Large airways are patent. Heart: Heart is within normal limits for size. Vasculature: No evidence of aortic aneurysm. Mediastinum: No gross evidence of adenopathy. Musculoskeletal: No acute osseous abnormalities, multilevel disc degeneration changes throughout the spine. Soft Tissues: Right thyroid nodule measures 13 mm. Lower neck: No significant findings. Upper Abdomen: No significant findings. IMPRESSION: Motion limited exam with scattered pulmonary emboli, visualized no evidence right heart strain. Findings communicated to Dr. Montes on 03/16/2023 1:[address] Raj Oliva.
[2023-03-16] MEDS ORDERED: HEPARIN SODIUM 1,000 UN/ML (10ML VL) IV PRN (13:46)
[2023-03-16] MEDS ORDERED: HEPARIN SODIUM 1,000 UN/ML (10ML VL) IV ONE (13:46)
[2023-03-16 13:52] LABS: ALT 27 U/L (4-49); AST 33 U/L (17-59); African American GFR (CKD) >90 (>60 ml/min/1.73 sqM); Albumin 4.3 g/dL (3.5-5.0); Alkaline Phosphatase 82 U/L (38-126); Anion Gap 11 mmol/L; Blood Urea Nitrogen 16 mg/dL (9-20); Carbon Dioxide 21 mmol/L (22-30); Chloride 106 mmol/L (98-107); Glucose 101 mg/dL (74-99); Non-African American GFR(CKD) 84 (>60 ml/min/1.73 sqM); Potassium 4.9 mmol/L (3.5-5.1); Sodium 138 mmol/L (137-145); Total Bilirubin 0.8 mg/dL (0.2-1.3); Total Protein 7.5 g/dL (6.3-8.2)
[2023-03-16] MEDS ORDERED: HEPARIN SOD,PORK IN 0.45% NACL 25,000 UNIT in 0.45% NACL 1 250ML.BAG IV SCH (14:00)
[2023-03-16] MEDS ORDERED: IBUPROFEN 400 MG TAB PO PRN (14:00)
[2023-03-16] MEDS ORDERED: NALOXONE 0.4 MG/ML 1 ML VIAL IV PRN (14:00)
[2023-03-16] MEDS ORDERED: ACETAMINOPHEN TAB 325 MG TAB PO PRN (14:00)
[2023-03-16] MEDS ORDERED: HYDROcodone/APAP 5-325MG 1 EACH TAB PO PRN (14:00)
--- NOTE | 2023-03-16 14:24 | P.HPIM ---
History of Present Illness H&P Date: 03/16/23 History of Presenting Illness: Patient is a very pleasant 57-year-old male with a past medical history of ulcerative colitis on Humira, hypertension, hyperlipidemia, and anxiety with depression. He presented to the emergency department with a chief complaint of left calf pain. Patient states he began experiencing pain in his left calf approximately 5 days ago. He denies any associated fevers, swelling, redness, numbness, or injury. Patient denies having any recent trips, injuries, long car rides, chest pain, shortness of breath, or palpitations. He denies having incre ase in sedentary activity, reports normal baseline activity. Patient denies history of DVT or PE and denies history of known clotting disorders. Patient reports he called his PCP and was instructed to come to the hospital for evaluation to rule out a DVT. Upon arrival to the emergency department patient underwent full evaluation. Patient initially tachycardic with heart rate 112, and hypertensive with blood pressure 155/108. Venous Doppler left lower extremity was completed positive for DVT and left popliteal vein extending through the proximal calf veins. CTA then completed in radiology report stating motion limited exam however scattered bilateral pulmonary emboli were noted with no visualization or evidence of right heart strain. Labs completed and reviewed. CBC showing mild leukocytosis with WBC count of 11.1. BMP showing no significant abnormalities. Troponin negative at less than 0.012. Patient was started on anticoagulation with heparin bolus followed by infusion at 18 units/kg/hr. Discussed clinical findings, laboratory analysis, and imaging findings in detail with ED provider. Patient admitted under our services and consultation placed to cardiology. Patient reports he does follow up outpatient with layout worker Dr. Gresham secondary to abnormal valve. DVT and PE suspected to be secondary to immunomodular use. Patient reports that he has been on Humira for treatment of his ulcerative colitis for approximately 4 years. Patient states initially 4 years ago he was started on biweekly doses and approximately 5 months ago he was increased to weekly doses with last injection being approximately 2 days ago. Review of systems: Pertinent positives and negatives as discussed in HPI, a complete review of systems was performed and all other systems are negative. Physical exam: Vital signs reviewed and stable. General: Nontoxic, no distress and appears stated age. Derm: Skin warm and dry, normal coloration for ethnicity. Head: Atraumatic, normocephalic and symmetric. Eyes: EOMs intact, no lid lag, and anicteric sclera Mouth: no lip lesions, mucus membranes moist Cardiovascular: regular rate and rhythm with normal S1S2, no murmur, positive p osterior tibial pulses bilaterally, and cap refill < 2 seconds. Lungs: Respirations even, regular, and unlabored on room air. Lungs CTA bilaterally, no rhonchi, no rales, no wheezing, and no accessory muscle usage. Abdominal: soft, nontender to palpation, no guarding, no appreciable organomegaly Ext: ROM intact. No gross muscle atrophy, no edema, no contractures Neuro: Speech clear, face symmetrical and CN II-XII grossly intact with no noted focal neuro deficits Psych: Alert and oriented to person, place, time, and situation. Appropriate and pleasant affect. Assessment and Plan of Care: Bilateral PEs DVT Sinus tachycardia Hypertension -Patient initially tachycardic with heart rate 112, and hypertensive with blood pressure 155/108. -Venous Doppler left lower extremity was completed positive for DVT and left popliteal vein extending through the proximal calf veins. -CTA then completed in radiology report stating motion limited exam however scattered bilateral pulmonary emboli were noted with no visualization or evidence of right heart strain. -Labs completed and reviewed. CBC showing mild leukocytosis with WBC count of 11.1. BMP showing no significant abnormalities. Troponin negative at less than 0.012. -Patient was started on anticoagulation with heparin bolus of 8346 units IVP followed by heparin infusion at 18 units/kg/hr. -Discussed clinical findings, laboratory analysis, and imaging findings in detail with ED provider. -Patient admitted under our services and consultation placed to cardiology. Patient reports he does follow up outpatient with layout worker Dr. Gresham secondary to abnormal valve. -Echocardiogram was completed in the ER and currently pending results. -DVT and PE suspected to be secondary to immunomodular use. Patient reports that he has been on Humira for treatment of his ulcerative colitis for approximately 4 years. Patient states initially 4 years ago he was started on biweekly doses and approximately 5 months ago he was increased to weekly doses with last injection being approximately 2 days ago. History of Ulcerative colitis on Humira Hypertension Hyperlipidemia Anxiety with depression -Patient to continue daily medication regimen with lisinopril 5 mg daily, lovastatin 40 mg daily, Remeron 45 mg nightly Zyprexa 10 mg nightly, and BuSpar 15 mg 3 times daily. -Hold Humira at this time. The patient is admitted with an anticipated less than 2 midnight stay for evaluation of bilateral PEs and DVT CODE STATUS: Full code DVT prophylaxis: heparin infusion Discussed with: patient, patient's , RN, and ED provider. Anticipated discharge date: 24-[address]: home Patient was seen independently by Nurse Practitioner. This document was prepared using [employer] dictation software. Please allow for errors in metal ceiling builder while rare they do occur. Ron Nielson NP rendered care for this patient independently, reviewed the findings and plan as documented in the note above. I did not physically speak with or examine the patient on this brian Past Medical History Past Medical History: Hyperlipidemia, Hypertension Additional Past Medical History / Comment(s): ulcerative Colitis History of Any Multi-Drug Resistant Organisms: None Reported Past Surgical History: No Surgical Hx Reported Additional Past Surgical History / Comment(s): Colonoscopies Past Anesthesia/Blood Transfusion Reactions: No Reported Reaction Past Psychological History: Anxiety Smoking Status: Never smoker Past Alcohol Use History: None Reported Past Drug Use History: None Reported - Past Family History Mother Family Medical History: No Reported History Medications and Allergies Home Medications Medication Instructions Recorded Confirmed Type Lovastatin [Mevacor] 40 mg PO DAILY 11/16/16 03/16/23 History Mesalamine [Lialda] 4.8 gm PO DAILY 11/16/16 03/16/23 History Mirtazapine [Remeron] 45 mg PO HS@199911/16/16 03/16/23 History Omeprazole 20 mg PO DAILY 11/16/16 03/16/23 History Adalimumab [Humira Pen 40 mg SQ Q14D 09/15/21 03/16/23 History Crohn's-Uc-Hs] lisinopriL [Zestril] 5 mg PO DAILY 09/15/21 03/16/23 History LORazepam [Ativan] 0.5 mg PO HS@219903/16/23 03/16/23 History OLANZapine [ZyPREXA] 10 mg PO HS@219903/16/23 03/16/23 History busPIRone HCL 15 mg PO TID@0600,1400,199903/16/23 03/16/23 History Allergies Allergy/AdvReac Type Severity Reaction Status Date / Time No Known Allergies Allergy Verified 03/16/23 13:53 Physical Exam Vitals: Vital Signs Temp Pulse Resp BP Pulse Ox 03/16/23 14:09 105 H 18 153/100 97 03/16/23 11:09 98.0 F 115 H 18 136/98 97 03/16/23 10:53 98.4 F 112 H 20 155/108 98 Intake and Output 03/15/23 03/16/23 03/16/23 22:59 06:59 14:59 Other: Weight 104.326 kg Results CBC & Chem 7: 03/16/23 12:30 03/16/23 13:22 Labs: Abnormal Lab Results - Last 24 Hours (Table) 03/16/23 03/16/23 Range/Units 12:30 13:22 WBC 11.1 H (3.8-10.6) k/uL Neutrophils # 8.3 H (1.3-7.7) k/uL Carbon Dioxide 21 L (22-30) mmol/L Glucose 101 H (74-99) mg/dL
[2023-03-16] MEDS ORDERED: ALPRAZolam 1 MG TAB PO PRN (16:56)
[2023-03-16] MEDS ORDERED: SODIUM CHLORIDE 0.9% 1,000 ML IV ONE (17:25)
--- NOTE | 2023-03-16 17:26 | P.CNPUL ---
History of Present Illness Consult date: 03/16/23 Reason for consult: DVT History of present illness: 57-year-old male patient, presented to the hospital because of pain and discomfort in his left lower extremity. No previous history of DVT or pulmonary embolism. He denies having any shortness of breath. No pleurisy. No hemoptysis. He came into the emergency and he was slightly tachycardic with a heart rate of 112. He was otherwise slightly hypertensive also initial blood pressure was 155/108. The patient had a Doppler of the left lower extremity was found to have a left popliteal DVT extending to the proximal Base. CT angiogram was also done that showed very tiny subsegmental bilateral pulmonary emboli without evidence of any strain on the right ventricle. The patient is currently on room air oxygen. He is not tachycardic. His heart rate is around 122. He is in sinus tachycardia. His blood work is essentially within normal limits. WBC is 11.1 with a hemoglobin of 16.4. Sodium is at 138, BUN is 16 with a creatinine of 0.9. Troponins are negative. He is feeling well. He wanted to go home. Based on the presence of some sinus tachycardia, he was kept in the hospital. Pulse ox is currently in order of 97% on room air oxygen. He has history of ulcerative colitis and is limited on Humira. He also takes hypertension medication and he has hyperlipidemia chronic anxiety and depression. The Smoker. Is quite active. No history of malignancy. No previous history of trauma. No recent history of surgeries. He has undergone colonoscopies every 2 years without evidence of any GI malignancies. He follows up locally with gastroenterology. Is currently on IV heparin. Review of Systems Constitutional: Denies chills, Denies fever Eyes: denies as per HPI, denies blurred vision, denies bulging eye, denies decreased vision, denies diplopia, denies discharge, denies dry eye, denies irritation, denies itching, denies pain, denies photophobia, denies loss of peripheral vision, denies loss of vision, denies tunnel vision/blind spots Ears: deny: decreased hearing, ear discharge, earache, tinnitus Breasts: absent: as per HPI, gynecomastia Cardiovascular: Reports as per HPI Respiratory: Reports as per HPI Gastrointestinal: Reports as per HPI, Reports diarrhea Genitourinary: Reports as per HPI Musculoskeletal: Reports as per HPI (Calf pain) Musculoskeletal: bilateral: ankle swelling, absent: ankle pain, ankle stiffness, as per HPI, elbow pain, elbow stiffness, elbow swelling, foot pain, foot stiffness, foot swelling, hand pain, hand stiffness, hand swelling, hip pain, hip stiffness, hip swelling, knee pain, knee stiffness, knee swelling, shoulder pain, shoulder stiffness, shoulder swelling, wrist pain, wrist stiffness, wrist swelling Integumentary: Reports as per HPI Neurological: Reports as per HPI Psychiatric: Reports as per HPI Endocrine: Reports as per HPI Hematologic/Lymphatic: Reports as per HPI Allergic/Immunologic: Reports as per HPI Past Medical History Past Medical History: Hyperlipidemia, Hypertension Additional Past Medical History / Comment(s): ulcerative Colitis History of Any Multi-Drug Resistant Organisms: None Reported Past Surgical History: No Surgical Hx Reported Additional Past Surgical History / Comment(s): Colonoscopies Past Anesthesia/Blood Transfusion Reactions: No Reported Reaction Past Psychological History: Anxiety Smoking Status: Never smoker Past Alcohol Use History: None Reported Past Drug Use History: None Reported - Past Family History Mother Family Medical History: No Reported History Medications and Allergies Home Medications Medication Instructions Recorded Confirmed Type Lovastatin [Mevacor] 40 mg PO DAILY 11/16/16 03/16/23 History Mesalamine [Lialda] 4.8 gm PO DAILY 11/16/16 03/16/23 History Mirtazapine [Remeron] 45 mg PO HS@199911/16/16 03/16/23 History Omeprazole 20 mg PO DAILY 11/16/16 03/16/23 History Adalimumab [Humira Pen 40 mg SQ Q14D 09/15/21 03/16/23 History Crohn's-Uc-Hs] lisinopriL [Zestril] 5 mg PO DAILY 09/15/21 03/16/23 History LORazepam [Ativan] 0.5 mg PO HS@219903/16/23 03/16/23 History OLANZapine [ZyPREXA] 10 mg PO HS@219903/16/23 03/16/23 History busPIRone HCL 15 mg PO TID@0600,1400,199903/16/23 03/16/23 History Allergies Allergy/AdvReac Type Severity Reaction Status Date / Time No Known Allergies Allergy Verified 03/16/23 13:53 Physical Exam Vitals: Vital Signs Temp Pulse Resp BP Pulse Ox 03/16/23 17:11 111 H 18 139/94 96 03/16/23 14:09 105 H 18 153/100 97 03/16/23 11:09 98.0 F 115 H 18 136/98 97 03/16/23 10:53 98.4 F 112 H 20 155/108 98 Intake and Output 03/16/23 03/16/23 03/16/23 06:59 14:59 22:59 Other: Weight 104.326 kg Patient is calm and comfortable. He is currently on room air oxygen. Breathing is nonlabored. He does have some limited sinus tachycardia. The patient appeared well nourished and normally developed. Vital signs as documented. Head exam is unremarkable. No scleral icterus or corneal arcus noted. Neck is without jugular venous distension, thyromegaly, or carotid bruits. Carotid upstrokes are brisk bilaterally. Lungs are clear to auscultation and percussion. Cardiac exam reveals the PMI to be normally sized and situated. Rhythm is regular. First and second heart sounds normal. No murmurs, rubs or gallops. Abdominal exam reveals normal bowel sounds, no masses, no organomegaly and no aortic enlargement. Extremities are nonedematous and both femoral and pedal pulses are normal.Examination of the skin revealed no evidence of significant rashes, suspicious appearing nevi or other concerning lesions.Neurologically, the patient is awake and alert and the patient does not have any focal neurological deficit. Cranial nerves are essentially intact. Results - Laboratory Findings CBC and BMP: 03/16/23 12:30 03/16/23 13:22 Abnormal lab findings: Abnormal Labs 03/16/23 03/16/23 12:30 13:22 WBC 11.1 H Neutrophils # 8.3 H Carbon Dioxide 21 L Glucose 101 H - Diagnostic Findings Chest x-ray: image reviewed CT scan - chest: image reviewed Assessment and Plan Plan: Acute left lower extremity DVT, popliteal, started on IV heparin. An unprovoked event. Pulmonary embolism, acute in a setting of a left lower oximetry popliteal DVT. The patient has Subsegmental pulmonary emboli,, and the clot burden is minimal at this point in time. No significant shortness of breath Sinus tachycardia, could be related to clotting or pulmonary embolism. No evidence of any RV strain pattern. Awaiting echocardiogram No shortness of breath. No previous history of DVTs or pulmonary embolism Hypertension Hyperlipidemia History of ulcerative colitis maintain on Humira on an outpatient basis, chronic diarrhea History of chronic anxiety/depression Plan Stop IV heparin and start the patient and cognition with Eliquis 10 mg by mouth twice a day for the next 1 week to be transitioned to 5 mg twice a day after a week of treatment.. Echocardiogram to be done today. Check free T4 and TSH. Moderate sinus tachycardia. Obtain a 12-lead EKG. Repeat another set of troponins. Check pro BNP level. May potentially discharged next 24-48 hours if he continues to be stable and there is improvement in sinus tachycardia. We'll continue to follow.. Also suggest giving the patient liter of fluid as the patient has chronic diarrhea and he may have some underlying intravascular volume depletion contributing to his sinus tachycardia.
--- NOTE | 2023-03-16 17:33 | CA ---
Transthoracic Echo Report Name: Gerald Urrutia Age: 57 Gender: M : 1965 Exam Date: 03/16/2023 14:27 Exam Location: [facility] Ht (in): 73 Wt (lb): 230 Ordering Physician: Bryn Boyer Attending/Referring Phys: Jai Alai Player Adrian Hull RDCS Procedure CPT: Indications: tachycardia PE/DVT Cardiac Hx: Obesity Technical Quality: Technically difficult study Contrast 1: Lumason Total Dose (mL): 6 Contrast 2: Total Dose (mL): MEASUREMENTS (Male / Female) Normal Values 2D ECHO LV Diastolic Diameter PLAX 4.8 cm 4.2 - 5.9 / 3.9 - 5.3 cm LV Systolic Diameter PLAX 3.8 cm LV Fractional Shortening PLAX 19.4 % IVS Diastolic Thickness 1.2 cm 0.6 - 1.0 / 0.6 - 0.9 cm IVS Systolic Thickness 1.4 cm LVPW Diastolic Thickness 1.3 cm 0.6 - 1.0 / 0.6 - 0.9 cm LVPW Systolic Thickness 1.6 cm LV Relative Wall Thickness 0.5 RV Internal Dim ED PLAX 2.9 cm LVOT Diameter 2.1 cm LA Systolic Diameter LX 4.0 cm 3.0 - 4.0 / 2.7 - 3.8 cm LV Diastolic Volume MOD BP 75.0 cm??? 67 - 155 / 56 - 104 cm??? LV Systolic Volume MOD BP 25.0 cm??? 22 - 58 / 19 - 49 cm??? LV Ejection Fraction MOD BP 66.6 % >= 55 % LV Stroke Volume MOD BP 50.0 cm??? LV Diastolic Volume MOD 4C 94.2 cm??? LV Systolic Volume MOD 4C 35.1 cm??? LV Ejection Fraction MOD 4C 62.8 % LV Stroke Volume MOD 4C 59.1 cm??? LV Diastolic Length 4C 7.6 cm LV Systolic Length 4C 5.9 cm LV Diastolic Volume MOD 2C 49.9 cm??? LV Systolic Volume MOD 2C 17.9 cm??? LV Ejection Fraction MOD 2C 64.1 % LV Stroke Volume MOD 2C 32.0 cm??? LV Diastolic Length 2C 6.3 cm LV Systolic Length 2C 5.8 cm LA Area 4C View 11.6 cm??? <= 20 cm??? LA Volume 28.0 cm??? 18 - 58 / 22 - 52 cm??? M-MODE Aortic Root Diameter MM 3.8 cm LA Systolic Diameter MM 3.0 cm LA Ao Ratio MM 0.8 AV Cusp Separation MM 1.7 cm DOPPLER AV Peak Velocity 130.1 cm/s AV Peak Gradient 6.8 mmHg MV Deceleration Arthur 519.0 cm/s??? MV Pressure Half Time 31.9 ms MV Area PHT 6.9 cm??? MR Peak Velocity 185.3 cm/s MR Peak Gradient 13.7 mmHg Mitral E Point Velocity 57.1 cm/s Mitral A Point Velocity 73.8 cm/s Mitral E to A Ratio 0.8 MV Deceleration Time 110.0 ms MV E' Velocity 6.3 cm/s Mitral E to MV E' Ratio 9.1 PV Peak Velocity 108.5 cm/s PV Peak Gradient 4.7 mmHg FINDINGS Left Ventricle Left ventricular ejection fraction is estimated at 55-60 %. Borderline left ventricular hypertrophy. Grade 1 diastolic dysfunction. Normal systolic function. Right Ventricle Normal right ventricular size and function. Right Atrium Normal right atrial size. Left Atrium Normal left atrial size. Mitral Valve Mitral valve thickened. Trace to mild mitral regurgitation. Aortic Valve Trileaflet aortic valve. Tricuspid Valve Mild tricuspid regurgitation. Pulmonic Valve Pulmonic valve not well visualized. Pericardium Normal pericardium. Echo free space anterior to the right ventricle likely represents a fat pad. Aorta Mild aortic dilatation at the level of the sinuses of valsalva (root). CONCLUSIONS Technically suboptimal study secondary to poor echo windows Left ventricular systolic function is normal Previewed by: Dr. Bartolo Sarkar MD (Electronically Signed) Final Date: 16 March 2023 17:32
[2023-03-16] MEDS: APIXABAN 5 MG TAB PO SCH (17:44)
[2023-03-16 19:15] LABS: Basophils % (A) 0 %; Eosinophils # (A) 0.1 k/uL (0-0.7); Eosinophils % (A) 1 %; HCT 40.7 % (39.0-53.0); HGB 14.4 gm/dL (13.0-17.5); Lymphocytes # (A) 2.3 k/uL (1.0-4.8); Lymphocytes % (A) 23 %; MCH 31.3 pg (25.0-35.0); MCHC 35.3 g/dL (31.0-37.0); MCV 88.5 fL (80.0-100.0); Mean Platelet Volume 6.9; Monocytes # (A) 0.6 k/uL (0-1.0); Monocytes % (A) 6 %; Neutrophils % (A) 68 %; Platelet Count 151 k/uL (150-450); RDW 12.7 % (11.5-15.5); WBC 10.2 k/uL (3.8-10.6)
[2023-03-16 19:30] LABS: INR 1.1 (<1.2); Partial Thromboplastin Time 99.1 sec (22.0-30.0); Prothrombin Time 11.2 sec (9.0-12.0)
[2023-03-16] MEDS ORDERED: MIRTAZAPINE 45 MG TABLET PO SCH (20:00)
[2023-03-16] MEDS: busPIRone HCl 5 MG TAB PO SCH (20:27)
[2023-03-16] MEDS ORDERED: APIXABAN 5 MG TAB PO SCH (21:00)
[2023-03-16] MEDS ORDERED: LORazepam 0.5 MG TAB PO SCH (22:00)
[2023-03-16] MEDS ORDERED: OLANZapine 10 MG TAB PO SCH (22:00)
[2023-03-17 04:05] VITALS: RESP 18
[2023-03-17] MEDS: busPIRone HCl 5 MG TAB PO SCH (06:00)
[2023-03-17 06:39] VITALS: BP 115/76; PULSE 93; TEMP 98.5
[2023-03-17 08:33] LABS: Basophils # (A) 0.04 X 10*3/uL (0.00-0.10); Basophils % (A) 0.4 %; Eosinophils # (A) 0.29 X 10*3/uL (0.04-0.35); HCT 42.7 % (39.6-50.0); HGB 14.5 g/dL (13.0-17.0); Immature Grans, Automated 0.3 %; Lymphocytes # (A) 3.14 X 10*3/uL (0.90-5.00); Lymphocytes % (A) 32.6 %; MCH 30.3 pg (27.0-32.0); MCV 89.1 fL (80.0-97.0); Mean Platelet Volume 9.4 fL (9.5-12.2); Monocytes # (A) 0.95 X 10*3/uL (0.20-1.00); Monocytes % (A) 9.9 %; NRBC Per 100 WBC 0 /100 WBCS (0.0-0.0); Neutrophils # (A) 5.17 X 10*3/uL (1.80-7.70); Neutrophils % (A) 53.8 %; Platelet Count 158 X 10*3/uL (140-440); RBC 4.79 X 10*6/uL (4.40-5.60); RDW 12.3 % (11.5-14.5); WBC 9.62 X 10*3/uL (4.50-10.00)
[2023-03-17] MEDS: APIXABAN 5 MG TAB PO SCH (08:55)
[2023-03-17] MEDS ORDERED: PANTOPRAZOLE 40 MG TABLET PO SCH (09:00)
[2023-03-17] MEDS ORDERED: Mesalamine [Lialda] 1.2 GM Tablet.Dr PO SCH (09:00)
[2023-03-17] MEDS ORDERED: ATORVASTATIN 10 MG TAB PO SCH (09:00)
[2023-03-17] MEDS ORDERED: lisinopriL 5 MG TAB PO SCH (09:00)
--- NOTE | 2023-03-17 11:55 | P.DS ---
Providers Date of admission: 03/16/23 13:59 Expected date of discharge: 03/17/23 Attending physician: Braulio Bagley MD Consults: 03/16/23 14:00 Consult Physician Routine Consulting Provider: Mandy Flores Consult Reason/Comments: bilateral PE Do you want consulting provider notified?: Yes, Notify in am Primary care physician: Andrew Giles MD Hospital Course: Bilateral PEs DVT Sinus tachycardia Hypertension History of Ulcerative colitis on Humira Hypertension Hyperlipidemia Anxiety with depression Hospital Course: Patient is a very pleasant 57-year-old male with a past medical history of ulcerative colitis on Humira, hypertension, hyperlipidemia, and anxiety with depression who presented to the emergency department with a chief complaint of left calf pain. Upon arrival to the emergency department patient underwent full evaluation. Patient initially tachycardic with heart rate 112, and hypertensive with blood pressure 155/108. Venous Doppler left lower extremity was completed positive for DVT and left popliteal vein extending through the proximal calf veins. CTA then completed in radiology report stating motion limited exam however scattered bilateral pulmonary emboli were noted with no visualization or evidence of right heart strain. Labs completed and reviewed. CBC showing mild leukocytosis with WBC count of 11.1. BMP showing no significant abnormalities. Troponin negative at less than 0.012. Patient was started on anticoagulation with heparin bolus followed by infusion at 18 units/kg/hr. Discussed clinical findings, laboratory analysis, and imaging findings in detail with ED provider. Patient admitted under our services and consultation placed to cardiology. Patient was started on heparin gtt initially. Seen by pulmonology ans transitioned to Apixaban. He remained on room air and tachycardia resolved, calf pain improved. He was discharged home with Apixaban and instructions to f/u with PCP. I spent 32 minutes coordinating this discharge Gen: awake, alert HEENT: normocephalic, atraumatic, good hearing acuity, moist mucous membranes Resp: good air exchange, breathing comfortably with no accessory muscle use CVS: good distal perfusion x 4, GI: soft, NTTP, ND : no SPT, no CVAT, hensley catheter not present MSK: no pitting edema, no clubbing Neuro: non-focal, moving all extremities Psych: cooperative, euthymic mood Patient Condition at Discharge: Good Plan - Discharge Summary New Discharge Prescriptions: New Apixaban [Eliquis] 5 mg PO BID #60 tab Acetaminophen Tab [Tylenol] 650 mg PO Q6HR PRN tab PRN Reason: Mild Pain Or Fever > 100.5 Apixaban [Eliquis] 10 mg PO BID #12 tab Continue Omeprazole 20 mg PO DAILY Mirtazapine [Remeron] 45 mg PO HS@1999 Lovastatin [Mevacor] 40 mg PO DAILY Mesalamine [Lialda] 4.8 gm PO DAILY busPIRone HCL 15 mg PO TID@0600,1400,1999 LORazepam [Ativan] 0.5 mg PO HS@2200 OLANZapine [ZyPREXA] 10 mg PO HS@2200 lisinopriL [Zestril] 5 mg PO DAILY Adalimumab [Humira Pen Crohn's-Uc-Hs] 40 mg SQ Q14D Discharge Medication List Lovastatin [Mevacor] 40 mg PO DAILY 11/16/16 [History] Mesalamine [Lialda] 4.8 gm PO DAILY 11/16/16 [History] Mirtazapine [Remeron] 45 mg PO HS@199911/16/16 [History] Omeprazole 20 mg PO DAILY 11/16/16 [History] Adalimumab [Humira Pen Crohn's-Uc-Hs] 40 mg SQ Q14D 09/15/21 [History] lisinopriL [Zestril] 5 mg PO DAILY 09/15/21 [History] LORazepam [Ativan] 0.5 mg PO HS@2200 03/16/23 [History] OLANZapine [ZyPREXA] 10 mg PO HS@2200 03/16/23 [History] busPIRone HCL 15 mg PO TID@0600,1400,199903/16/23 [History] Acetaminophen Tab [Tylenol] 650 mg PO Q6HR PRN tab 03/17/23 [Rx] Apixaban [Eliquis] 5 mg PO BID #60 tab 03/17/23 [Rx] Apixaban [Eliquis] 10 mg PO BID #12 tab 03/17/23 [Rx] Follow up Appointment(s)/Referral(s): None,Stated [REFERRING] - 1-2 days Activity/Diet/Wound Care/Special Instructions: Eliquis medication at [facility] pharmacy. Per pharmacy, there is no cost to patient for that medication. Discharge Disposition: HOME SELF-CARE
[2023-03-29] MEDS ORDERED: [UNRECOGNIZED DRUG - OTHER] SQ SCH (09:00)
[2023-03-29] MEDS ORDERED: ADALIMUMAB 40 MG/0.8 ML SQ SCH (09:00)
== END 2023-03-17 11:54 | disposition home or self-care (01) ==
LOC: EC 10:51 → 6NMEDSUR 13:59
PROVIDERS: ADMIT Student in an Organized Health Care Education/Training Program; ATTEND Student in an Organized Health Care Education/Training Program
DX: I82.432 Acute embolism and thrombosis of left popliteal vein (principal); I26.99 Other pulmonary embolism without acute cor pulmonale; I10 Essential (primary) hypertension; K51.90 Ulcerative colitis, unspecified, without complications; E78.5 Hyperlipidemia, unspecified; D72.829 Elevated white blood cell count, unspecified; R00.0 Tachycardia, unspecified; F41.8 Other specified anxiety disorders; Z79.620 Long term (current) use of immunosuppressive biologic; Z79.899 Other long term (current) drug therapy; Z98.890 Other specified postprocedural states
CPT/HCPCS: 96372; 96374; 96375; 99285; 36415; 93005; 80053; 84443; 84484; 85025 ×2; 85610; 85730; 93971; 71275; G0378 ×2; C8929; J2060; J2360; J1644 ×2; Q9950; Q9967; 93306

== ENCOUNTER → 2023-10-02 | Outpatient (CLI) | payer OTHER ==
--- NOTE | 2023-10-02 13:17 | XR ---
EXAMINATION TYPE: XR Hip RT and AP Pelvis DATE OF EXAM: 10/02/2023 COMPARISON: NONE HISTORY: Pain TECHNIQUE: A single AP view of the pelvis is obtained. Two views of the right hip are obtained. FINDINGS: There is no acute fracture/dislocation evident in the pelvis. The hip and sacroiliac join ts appear symmetric and unremarkable. The overlying soft tissue appears unremarkable. Moderate hypertrophic arthropathy of the hips. Calcifications the pelvis are suggestive of phlebolith s. SI joints patent. IMPRESSION: 1. Moderate hypertrophic arthropathy bilateral hip correlate for femoral acetabular impingement.
== END | disposition home or self-care (01) ==
LOC: RADXRMAIN 12:53
PROVIDERS: ATTEND Family Medicine
DX: M16.0 Bilateral primary osteoarthritis of hip (principal)
CPT/HCPCS: 73502

== ENCOUNTER → 2023-12-27 | Outpatient (CLI) | payer OTHER ==
[2023-12-28 02:27] LABS: Basophils # (A) 0.05 X 10*3/uL (0.00-0.10); Basophils % (A) 0.6 %; Eosinophils # (A) 0.07 X 10*3/uL (0.04-0.35); Eosinophils % (A) 0.8 %; HCT 47.4 % (39.6-50.0); HGB 15.9 g/dL (13.0-17.0); Lymphocytes # (A) 2.18 X 10*3/uL (0.90-5.00); Lymphocytes % (A) 26.4 %; MCH 30.3 pg (27.0-32.0); MCHC 33.5 g/dL (32.0-37.0); MCV 90.3 FL (80.0-97.0); Mean Platelet Volume 10.2 FL (9.5-12.2); Monocytes # (A) 0.48 X 10*3/uL (0.20-1.00); Monocytes % (A) 5.8 %; NRBC Per 100 WBC 0 X 10*3/uL (0.00-0.01); Neutrophils # (A) 5.46 X 10*3/uL (1.80-7.70); Neutrophils % (A) 66.3 %; Platelet Count 229 X 10*3/uL (140-440); RBC 5.25 X 10*6/uL (4.40-5.60); RDW 12.4 % (11.5-14.5); WBC 8.25 X 10*3/uL (4.50-10.00)
[2023-12-28 02:48] LABS: ALT 28 U/L (10-49); AST 24 U/L (14-35); Albumin 4.7 g/dL (3.8-4.9); Albumin/Globulin Ratio 1.81 Ratio (1.60-3.17); Alkaline Phosphatase 75 U/L (41-126); BUN/Creat Ratio 8.42 Ratio (12.00-20.00); Blood Urea Nitrogen 10.1 mg/dL (9.0-27.0); Calcium 10.4 mg/dL (8.7-10.3); Carbon Dioxide 24.6 mmol/L (21.6-31.8); Chloride 106 mmol/L (96-109); Globulin 2.6 g/dL (1.6-3.3); Glucose 98 mg/dL (70-110); Potassium 4.4 mmol/L (3.5-5.5); Sodium 143 mmol/L (135-145); Total Bilirubin 0.6 mg/dL (0.3-1.2); Total Protein 7.3 g/dL (6.2-8.2)
== END | disposition home or self-care (01) ==
LOC: LABWHC1 13:40
PROVIDERS: ATTEND Internal Medicine Gastroenterology
DX: K51.90 Ulcerative colitis, unspecified, without complications (principal)
CPT/HCPCS: 36415; 80053; 85025

== ENCOUNTER → 2024-08-05 | Outpatient (CLI) | payer OTHER ==
[2024-08-05 18:21] LABS: Basophils # (A) 0.04 X 10*3/uL (0.00-0.10); Basophils % (A) 0.5 %; Eosinophils % (A) 1.3 %; HCT 47.3 % (39.6-50.0); HGB 16.2 g/dL (13.0-17.0); Lymphocytes # (A) 2.12 X 10*3/uL (0.90-5.00); Lymphocytes % (A) 26.5 %; MCH 30.3 pg (27.0-32.0); MCHC 34.2 g/dL (32.0-37.0); MCV 88.6 FL (80.0-97.0); Mean Platelet Volume 9.1 FL (9.5-12.2); Monocytes # (A) 0.45 X 10*3/uL (0.20-1.00); Monocytes % (A) 5.6 %; NRBC Per 100 WBC 0 X 10*3/uL (0.00-0.01); Neutrophils # (A) 5.26 X 10*3/uL (1.80-7.70); Neutrophils % (A) 65.7 %; Platelet Count 222 X 10*3/uL (140-440); RBC 5.34 X 10*6/uL (4.40-5.60); RDW 12.7 % (11.5-14.5)
[2024-08-05 19:20] LABS: BUN/Creat Ratio 7.92 Ratio (12.00-20.00); Blood Urea Nitrogen 10.3 mg/dL (9.0-27.0); Chloride 106 mmol/L (96-109); Glucose 102 mg/dL (70-110); Potassium 4.3 mmol/L (3.5-5.5); Sodium 143 mmol/L (135-145)
[2024-08-05 19:21] LABS: ALT 28 U/L (10-49); AST 25 U/L (14-35); Albumin 4.7 g/dL (3.8-4.9); Albumin/Globulin Ratio 1.96 Ratio (1.60-3.17); Alkaline Phosphatase 71 U/L (41-126); Calcium 9.6 mg/dL (8.7-10.3); Carbon Dioxide 24.9 mmol/L (21.6-31.8); Globulin 2.4 g/dL (1.6-3.3); Total Bilirubin 0.7 mg/dL (0.3-1.2); Total Protein 7.1 g/dL (6.2-8.2)
== END | disposition home or self-care (01) ==
LOC: LABWHC1 14:50
PROVIDERS: ATTEND Internal Medicine Gastroenterology
DX: K51.90 Ulcerative colitis, unspecified, without complications (principal)
CPT/HCPCS: 36415; 80053; 85025

== ENCOUNTER 2024-09-03 09:30 | Day surgery (SDC) | payer OTHER ==
[2024-09-03] MEDS: IV FLUID CONTINUATION 1,000 ML IV ONE (10:24)
[2024-09-03 10:34] VITALS: RESP 16; TEMP 97.5
[2024-09-03] MEDS: LACTATED RINGERS 1,000 ML IV SCH (10:40)
[2024-09-03] MEDS ORDERED: PROPOFOL 10 MG/ML 20 ML VIAL IV ONE (11:33)
--- NOTE | 2024-09-03 11:46 | P.PCN ---
Date of Procedure: 09/03/24 Procedure(s) Performed: BRIEF HISTORY: Patient is a 59-year-old pleasant white male scheduled for an elective colonoscopy as a part of screening for colon cancer. He has longstanding history of ulcerative colitis diagnosed in 1995. He is presently maintained on Humira injections every 2 weeks and remains in clinical remission. PROCEDURE PERFORMED: Colonoscopy with random biopsies. PREOPERATIVE DIAGNOSIS: Screening for colon cancer/longstanding history of ulcerative colitis. IV sedation per Anesthesia. PROCEDURE: After informed consent was obtained, the patient, was brought into the endoscopy unit. IV sedation was administered by Anesthesia under continuous monitoring. Digital rectal examination was normal. Initially the Olympus CF-160 flexible video colonoscope was then inserted in the rectum, gradually advanced into the cecum without any difficulty. Careful examination was performed as the scope was gradually being withdrawn. Ileocecal valve and the appendiceal orifice were visualized and appeared normal. Prep was excellent. Mucosa of the cecum, ascending colon, transverse colon, descending colon, sigmoid colon, and rectum appeared normal. There was also fostriecin is noted in the left colon. Biopsies were done from the rectosigmoid every 10 cm intervals to rule out dysplasia retroflexion was performed in the rectum and no lesions were seen. The patient tolerated the procedure well. IMPRESSION: Normal-appearing colon from rectum to cecum no evidence of active colitis or colon neoplasia.. RECOMMENDATIONS: Findings of this examination were discussed with the patient as well as his family. He was advised to follow-up with the biopsy results. Continue with Humira injections every 2 weeks. Repeat colonoscopy in 2 years based on the biopsy results.
[2024-09-03 12:04] VITALS: BP 135/85; PULSE 86
== END 2024-09-03 12:19 | disposition home or self-care (01) ==
LOC: ORWHC2ENDO 09:30
PROVIDERS: ATTEND Internal Medicine Gastroenterology
DX: K51.90 Ulcerative colitis, unspecified, without complications
CPT/HCPCS: 45380; 88305

== ENCOUNTER → 2025-03-28 | Outpatient (CLI) | payer OTHER ==
[2025-03-28 18:16] LABS: Basophils # (A) 0.04 X 10*3/uL (0.00-0.10); Basophils % (A) 0.4 %; Eosinophils # (A) 0.07 X 10*3/uL (0.04-0.35); Eosinophils % (A) 0.7 %; HCT 48.2 % (39.6-50.0); HGB 16.4 g/dL (13.0-17.0); Lymphocytes # (A) 2.03 X 10*3/uL (0.90-5.00); Lymphocytes % (A) 21.5 %; MCH 30.3 pg (27.0-32.0); MCV 88.9 FL (80.0-97.0); Mean Platelet Volume 9.4 FL (9.5-12.2); Monocytes # (A) 0.55 X 10*3/uL (0.20-1.00); Monocytes % (A) 5.8 %; NRBC Per 100 WBC 0 X 10*3/uL (0.00-0.01); Neutrophils # (A) 6.71 X 10*3/uL (1.80-7.70); Neutrophils % (A) 71.3 %; Platelet Count 242 X 10*3/uL (140-440); RBC 5.42 X 10*6/uL (4.40-5.60); RDW 12.5 % (11.5-14.5); WBC 9.43 X 10*3/uL (4.50-10.00)
[2025-03-28 18:28] LABS: ALT 28 U/L (10-49); AST 27 U/L (14-35); Albumin 4.5 g/dL (3.8-4.9); Albumin/Globulin Ratio 1.67 Ratio (1.60-3.17); Alkaline Phosphatase 68 U/L (41-126); BUN/Creat Ratio 11.18 Ratio (12.00-20.00); Bilirubin, Conjugated 0.24 mg/dL (0.20-0.40); Bilirubin,Unconjugated 0.36 mg/dL (0.20-1.00); Blood Urea Nitrogen 12.3 mg/dL (9.0-27.0); Calcium 9.8 mg/dL (8.7-10.3); Carbon Dioxide 23.3 mmol/L (21.6-31.8); Chloride 109 mmol/L (96-109); Chol/HDL Ratio 4.55 Ratio; Globulin 2.7 g/dL (1.6-3.3); Glucose 99 mg/dL (70-110); LDL Cholesterol,Calculated 120.9 mg/dL (0.0-131.0); Potassium 4.1 mmol/L (3.5-5.5); Sodium 146 mmol/L (135-145); Total Bilirubin 0.6 mg/dL (0.3-1.2); Total Protein 7.2 g/dL (6.2-8.2)
== END | disposition home or self-care (01) ==
LOC: LABWHC1 13:56
PROVIDERS: ATTEND Registered Nurse
DX: F41.1 Generalized anxiety disorder (principal); F41.0 Panic disorder [episodic paroxysmal anxiety]; F40.00 Agoraphobia, unspecified
CPT/HCPCS: 36415; 80053; 80061; 82248; 83036; 85025